=== PATIENT | male | born 1950 | race Caucasian/White ===

== ENCOUNTER → 2021-02-22 | Outpatient (CLI) | payer MEDICARE ==
--- NOTE | 2021-02-22 08:26 | RAD ---
EXAM: Pelvis and left hip, 3 views. HISTORY: Pain. COMPARISON: None. FINDINGS: A frontal view of the pelvis and 2 views of the left hip are obtained. There is no fracture , dislocation or subluxation. There is scoliosis and degenerative change involving the visualized low er lumbar spine. There is subchondral sclerosis and subchondral cyst formation involving the pubis sy mphysis. IMPRESSION: 1. No acute osseous finding. 2. Scoliosis and degenerative change involving the lumbar spine. Electronically signed by: Mirella Taylor MD (02/22/2021 8:24 AM) [id number]
== END ==
LOC: RAD 07:32
PROVIDERS: ATTEND Physician Assistant Medical
DX: M47.816 Spondylosis without myelopathy or radiculopathy, lumbar region (principal); M41.86 Other forms of scoliosis, lumbar region
CPT/HCPCS: 73502